=== PATIENT | female | born 1960 | race Caucasian/White ===

== ENCOUNTER 2020-05-11 17:07 | Inpatient (IN) | payer OTHER ==
[~2020-05-11] VITALS: Ht 162.6 cm; Wt 52.7 kg
[2020-05-11 17:37] VITALS: BP 138/78
--- NOTE | 2020-05-11 18:12 | NUR ---
1800 NEW ADMIT BROUGHT IN FROM [facility], PATIENT HAS A HISTORY OF USING METH, MARIJUANA AND ETOH. UPON ENTERING THE UNIT PATIENT JUMPED ON WINDOW SILL AND WAS SITTING STYLE. PATIENT WAS DESHELVED AND ASKED TO TAKE A SHOWER, PATIENT LIVES WITH CHILDREN. BEFORE SHE WAS SENT TO [facility] PATIENT WAS AT A [facility]ENT[facility]ION [facility]ENTER FOR DRUG USE. PATIENT IS ANSY AND VERY HYPER PATIENTS ABDOMEN SOFT ROUND BOWEL SOUNDS PRESENT LUNGS A LITTLE WHEEZE IN UPPER LOBES. [facility] STATES PATIENT IS A POOR HISTORIAN, PATIENT STATES SHE HAS COPD BUT WE DO NOT HAVE RECORDS THAT CONFIRMS THIS. PATIENT IS A SMOKER PATIENT IS PLEASANT COOPERATIVE. PATIENT DENIES SI/HI/AH/VH AT PRESENT. WILL CONTINUE TO MONITOR PATIENT FOR SAFETY AND BEHAVIORS.
[2020-05-11 19:42] VITALS: BP 135/62
[2020-05-11 21:00] VITALS: BP 135/62
--- NOTE | 2020-05-12 00:18 | NUR ---
PATIENT HAS BEEN IN HER BED ALL NIGHT SINCE BEGINNING OF SHIFT. SHE HAS SLEPT MOST OF THAT TIME. AWOKE HER FOR ASSESSMENT AND MED PASS. PATIENT DENIES PAIN AND JUST WANTED TO GO BACK TO SLEEP. PATIENT A/0X3-4. DENIES SI/HI/AVH AT THIS TIME. BED IN LOW POSITION AND ROUTINE ROUNDING TO ASSESS SAFETY AND STATUS OF PATIENT.
--- NOTE | 2020-05-12 06:41 | NUR ---
PATIENT WAS UP GETTING COFFEE AND STARTED WALKING TO HER ROOM. STOPPED HER AND ASKED HER TO DRINK COFFEE IN DINING ROOM AND THAT NO FOOD OR DRINK TO BE IN THE ROOM. THIS IRRITATED HER BUT SHE DID GO AND SIT DOWN IN A DINING ROOM CHAIR. SHE APPEARS DROWSY AND IS GRUMPY THIS MORNING.
--- NOTE | 2020-05-12 06:50 | NUR ---
PATIENT UP WANDERING IN HALLWAY AND RESTLESS. SHE REFUSED TO LET THE LAB DRAW HER BLOOD AND WALKED AWAY LAUGHING AND SAYING, 'NO NO NO. I'M NOT LETTING ANYONE TOUCH ME."
[2020-05-12 07:53] VITALS: BP 136/99
--- NOTE | 2020-05-12 18:18 | NUR ---
Up ambulating in unit without s/o distress. Alert and orientated X4, denies SI/HI. Spent most of day in room with the exception of meals. States she wants something for inflammation. Dr. Guerrero notified, naproxen given as ordered. Breath sounds essentially clear when breathing normally. When asked to take a deep breath she has audible wheeze more pronounced on expiration. No s/o resp distress. Reg HR auscultated. Color pink with brisk capillary refill and palpable peripheral pulses. Independent with voiding. Active bowel sounds over soft, flat abdomen. Regular, steady gait.
[2020-05-12 19:28] VITALS: BP 135/74
--- NOTE | 2020-05-13 04:18 | NUR ---
RECIEVED CARE OF THIS PATIENT AT 1900. ALERT AND ORIENTED X4. PATIENT ANXIOUS ABOUT WHAT IS GOING TO HAPPEN TO HER NEXT. IS SHE GOING TO [facility] OR WHAT? PATIENT UP AD MT. WAS UP AT A TABLE IN MAIN ROOM WORKING A PUZZLE PART OF THE NIGHT THEN WENT OT BED. HAS SLEPT MOST OF THE NIGHT. TOOK MEDS WITHOUT ANY PROBLEMS. NO DISRUPTIVE BEHAVIOR NOTED.
[2020-05-13 05:50] LABS: HEMATOCRIT 42.2 % (37.0-47.0); MCH 29.3 pg (26.0-34.0); MCHC 33.1 g/dL (28.0-37.0); MCV 88.6 fL (80.0-100.0); RBC 4.76 mil/uL (4.20-5.00); RDW 13.7 % (10.5-14.5); WBC 5.8 thou/uL (4.0-11.0)
[2020-05-13 06:16] LABS: CALCIUM 8.5 mg/dL (8.5-10.1); CREATININE 0.6 mg/dL (0.6-1.0); POTASSIUM 3.2 mmol/L (3.5-5.1)
[2020-05-13 06:38] VITALS: BP 152/84
[2020-05-13 09:33] VITALS: BP 152/84
--- NOTE | 2020-05-13 09:39 | NUR ---
0930 RESUMMED CARE FROM OVERNIGHT THIS AM, PATIENT IN ROOM LYING QUIET IN ROOM. PATIENT TE BREAKFAST TND TOOK MEDICATION WITHOUT INCIDENCE, PATIENTS ABDOMEN SOFT AND ROUND. BOWEL SOUNDS PRESENT LUNGS CLEAR. PATIENT DENIES SI/HI/AH/VH AT PRESENT. PATIENT COOPERATIVE NO BEHAVIOR PROBLEMS WILL CONTINUE TO MONITOR PATIENT FOR SAFETY AND BEHAVIORS.
[2020-05-13 09:55] VITALS: BP 152/84
--- NOTE | 2020-05-13 16:48 | NUR ---
Sw met wiht pt and completed the intake assessment and TP. Pt has multiple inpt psych and LTC settings. Pt live sin the home wiht her son and his fmaily near [facility]. Pt wants to get services with [facility] for therapy and meds management.
[2020-05-13 19:40] VITALS: BP 154/82
--- NOTE | 2020-05-14 04:33 | NUR ---
Assumed care of pt @ 1900. Pt calm et cooperative this shift. Pt with khanh coellomagalikiramarcos et states that she did not wish to be disturbed. Isolated in room all of shift. Took medications whole without difficulty. Ambulates with steady gait in room. Did not socialize with peers. VSWNL. Health assessment with no abnormalities noted at present time. Denies SI/Hi at present time. Currently resting in bed with eyes closed. Will continue to monitor per protocol.
[2020-05-14 07:35] VITALS: BP 136/84
--- NOTE | 2020-05-14 10:11 | NUR ---
ASSUMED CARE AT 0700 THIS MORNING. PT. AWAKE, ALERT AND ORIENTED X4. SHE IS DRESSED AND ON THE UNIT. SHE IS INTERACTING WITH SELECT PEERS. SHE IS ANSWERING QUESTIONS APPROPRIATELY. SHE TOOK HER MEDICATIONS WHOLE WITHOUT PROBLEMS NOTED. SHE IS FLITTING ABOUT THE UNIT, APPEARS HAPPY SHE IS SMILING.
--- NOTE | 2020-05-15 04:52 | NUR ---
Assumed care of pt @ 1900. Pt calm et cooperative with pleasant demeanor this shift. Took medications whole without difficulty. Ambulates the halls ad vi with steady gait. VSWNL. Health assessment with no abnormalities noted at present time. Denies SI/HI at present time. Socialized with peers in dayroom until HS. Currently resting in bed with eyes closed. Will continue to monitor per protocol.
[2020-05-15 09:05] VITALS: BP 119/68
--- NOTE | 2020-05-15 10:52 | NUR ---
ASSUMED CARE AT 0700 THIS MORNING. SHE WAS DRESSED AND SITTING ON THE UNIT WITH A CUP OF COFFEE. SHE TOOK HER MEDICATIONS WITHOUT PROBLEMS NOTED. SHE WAS SITTING AT A TABLE COACHING A PEER TO COMPLAIN AND DEMAND A COMPLETE MED LIST FROM THE STAFF. THE PEER WAS DIRECTED TO HIS STAFF. ANOTHER PEER WAS IRRITABLE WHEN HE GOT UP. THIS PT. ENCOURAGED HIM TO "GET WHAT YOU WANT". THE PATIENT BECAME MORE AGITATED AND STARTED PUNCHING AND KICKING STAFF. THIS PATIENT THEN WENT TO HER ROOM TO TAKE A NAP.
[2020-05-15 12:21] VITALS: BP 119/68
[2020-05-15 20:40] VITALS: BP 119/68
[2020-05-15 23:07] VITALS: BP 139/64
--- NOTE | 2020-05-16 03:55 | NUR ---
[facility]. SHE HAD HS SNACK AND WENT TO BED BY 2100. SHE DENIES SI/HI/AVH. SHE DENIES PAIN. SHE HAS BEEN CALM AND COMPLIANT. SHE TOOK HER MEDICATIONS WHOLE WITH WATER. SHE STATES SHE WAS VERY TIRED AND WANTED TO TRY AND GET SOME SLEEP. PATIENT HAS BEEN SLEEPING THRU NIGHT. DID WAKE UP WHEN NEW PATIENT WAS ADMITTED IN THE NEXT BED IN HER ROOM. SHE WAS ABLE TO FALL BACK TO SLEEP QUICKLY. WILL CONTINUE TO MONITOR.
[2020-05-16 07:51] VITALS: BP 136/78
--- NOTE | 2020-05-16 16:15 | NUR ---
DYSPHORIC MOOD THIS AM. MULTIPLE NEGATIVE REMARKS ABOUT HSOPITAL STAFF,UNIT AND PEERS- STATING "I DIDN'T SLEEP AT ALL BECAUSE MY NEW ROOMMATE-SHE CAN'T MOVE BECAUSE SHE IS FAT WELL I DIDN'T MAKE HER FAT-WHY IS IT MY PROBLEM" INITIALLY REFUSED AM MACRODANTIN STATING "I SHOULD BE DONE WITH THIS BY NOW" "ITS GIVING ME DISCHARGE AND I DON'T NEED IT" ARGUMENTATIVE WITH NURSING STAFF DENIES SI/SH/HI-DESCRIBES MOOD "CRAPPY I DON'T WANT TO BE HERE" MAG CITRATE 297ML GIVEN PO PER MD ORDER FOR REPORTED CONSITPATION. GAIT STEADY WITHOUT ASSISTIVE DEVICES.
[2020-05-16] MEDS ORDERED: VISTARIL 25 MG25 M1 PO (19:55)
[2020-05-16] MEDS ORDERED: QUETIAPINE FUM150 MG PO (19:55)
[2020-05-16] MEDS ORDERED: TOPAMAX 25 MG T25 M1 PO (19:55)
[2020-05-16] MEDS ORDERED: MACROBID 100 M100 M2 PO (19:55)
[2020-05-16 20:00] VITALS: BP 120/65
[2020-05-16 20:15] VITALS: BP 136/78
--- NOTE | 2020-05-17 02:35 | NUR ---
PATIENT WAS UP IN DINING ROOM TONIGHT VISITING WITH A MALE PATIENT. SHE HAS BEEN CALM AND HAPPY STATING SHE IS GOING HOME IN AM. PATIENT HOWEVER BECAME VERY AGITATED AND UPSET DUE TO HER ROOMMATE YELLING AND FUSSING AND NOT CALMING DOWN. THIS PATIENT WAS MOVED TO ANOTHER CLEAN BED FOR THE NIGHT SO SHE COULD GET SOME SLEEP WHILE THE STAFF WORKED TO GET HER ROOM MATE'S BEHAVIORS UNDER CONTROL. PATIENT HAS BEEN SLEEPING SO FAR TONIGHT. SHE DENIES SI/HI/AVH. PATIENT DENIES PAIN. ASSESSMENT WNL. ROUTINE ROUNDING TO CHECK PATIENT'S STATUS AND SAFETY.
[2020-05-17 08:40] VITALS: BP 103/63
[2020-05-17 08:49] VITALS: BP 103/63
--- NOTE | 2020-05-17 10:17 | NUR ---
SW provided pt with handout that included the numbers for [facility] and the National Suicide hotline. Sw then faxed the d/c summary and orders to [facility].
--- NOTE | 2020-05-17 10:55 | NUR ---
ASSUMED CARE AT 0700 THIS MORNING. PT. AWAKE AND IN THE DINING ROOM TALKING TO PEERS. SHE IS SMILING, AND ASSISTING STAFF BY WATCHING WHAT IS GOING ON IN THE ROOM AND TELLING STAFF ABOUT IT. SHE GOT DRESSED, CALLED HER BROTHER FOR A RIDE. TALKED TO AND STAFF ABOUT THE DISCHARGE INSTRUCTIONS. AT 1035 SHE WAS TAKEN TO SECURITY FOR HER WALLET AND BELONGINGS THERE. SHE HAD ALL HER BELONGINGS WITH HER. SHE WAS TAKEN TO THE CAR WITH HER SISTER IN LAW WAS AWAITING. SHE LEFT WITH HER BELONGINGS, SCRIPTS, D/C PAPERS.
[2020-05-17 11:08] VITALS: BP 103/63
== END 2020-05-17 10:35 | disposition home or self-care (01) | DRG 885 ==
LOC: SBH 17:07
PROVIDERS: Nurse Practitioner Family; ADMIT Psychiatry & Neurology Psychiatry; ATTEND Psychiatry & Neurology Psychiatry
DX: F25.0 Schizoaffective disorder, bipolar type (principal); F15.129 Other stimulant abuse with intoxication, unspecified; M62.82 Rhabdomyolysis; I48.20 Chronic atrial fibrillation, unspecified; F03.91 Unspecified dementia, unspecified severity, with behavioral disturbance; J44.9 Chronic obstructive pulmonary disease, unspecified; F32.9 Major depressive disorder, single episode, unspecified; F41.9 Anxiety disorder, unspecified; F17.210 Nicotine dependence, cigarettes, uncomplicated; I25.10 Atherosclerotic heart disease of native coronary artery without angina pectoris; I10 Essential (primary) hypertension; D63.8 Anemia in other chronic diseases classified elsewhere
CPT/HCPCS: 10880